=== PATIENT | female | born 1995 | race Caucasian/White ===

== ENCOUNTER → 2021-03-10 15:29 | Outpatient (BNVA) | payer SELFPAY | PROVIDERS: Visit Provider Nurse Practitioner Family | DX: J02.0 Streptococcal pharyngitis (principal) | CPT/HCPCS: 87071; 87880 ==

== ENCOUNTER 2023-09-18 08:07 | Oncology outpatient (recurring) (ONCR) | payer BC, MEDICAID, SELFPAY ==
[2023-09-18 08:30] VITALS: BP 134/84; PULSE 87; RESP 16; TEMP 36.3; O2SAT 99
[2023-09-18 10:03] VITALS: BP 127/83; PULSE 94; RESP 16; TEMP 36.2; O2SAT 99
== END 2023-09-26 23:59 | disposition home or self-care (01) ==
PROVIDERS: PCP Family Medicine; Visit Provider Family Medicine
DX: O36.0990 Maternal care for other rhesus isoimmunization, unspecified trimester, not applicable or unspecified (principal); Z67.41 Type O blood, Rh negative
CPT/HCPCS: 36415; 36430; 86850; 86900; 90384

== ENCOUNTER 2023-11-17 10:17 | Outpatient (CLI) | payer BC, MEDICAID, SELFPAY ==
[2023-11-17 10:20] VITALS: BMI 30.7
[2023-11-17 10:33] VITALS: BP 127/89; PULSE 86; RESP 16
[2023-11-17 10:55] VITALS: BP 116/77; PULSE 88
[2023-11-17 11:15] VITALS: BP 135/83; PULSE 88
== END 2023-11-17 11:25 | disposition home or self-care (01) ==
LOC: OPOB 10:28 → OBGYN 10:29
PROVIDERS: Absent Provider Family Medicine; PCP Family Medicine; Visit Provider Family Medicine
DX: O16.9 Unspecified maternal hypertension, unspecified trimester (principal); O36.5990 Maternal care for other known or suspected poor fetal growth, unspecified trimester, not applicable or unspecified; Z3A.00 Weeks of gestation of pregnancy not specified
CPT/HCPCS: 59025; 99211

== ENCOUNTER 2023-11-24 10:07 | Outpatient (CLI) | payer BC, MEDICAID, SELFPAY ==
[2023-11-24 10:07] VITALS: BMI 34.2
[2023-11-24 10:15] VITALS: TEMP 36.7
== END 2023-11-24 10:40 | disposition home or self-care (01) ==
LOC: OPOB 10:10 → OBGYN 10:11
PROVIDERS: PCP Family Medicine; Visit Provider Family Medicine
DX: O36.5990 Maternal care for other known or suspected poor fetal growth, unspecified trimester, not applicable or unspecified (principal); Z3A.00 Weeks of gestation of pregnancy not specified
CPT/HCPCS: 59025

== ENCOUNTER 2023-12-01 10:22 | Outpatient (CLI) | payer BC, MEDICAID, SELFPAY ==
[2023-12-01 10:43] VITALS: BP 138/74; PULSE 98; RESP 16
[2023-12-01 10:52] VITALS: BMI 34.9
[2023-12-01 10:56] VITALS: BP 132/69; PULSE 86
[2023-12-01 11:11] VITALS: BP 133/70; PULSE 91
[2023-12-01 11:20] VITALS: BP 133/70; PULSE 91
== END 2023-12-01 11:20 | disposition home or self-care (01) ==
LOC: OPOB 10:29 → OBGYN 10:43
PROVIDERS: PCP Family Medicine; Visit Provider Family Medicine
DX: O24.419 Gestational diabetes mellitus in pregnancy, unspecified control (principal); Z3A.00 Weeks of gestation of pregnancy not specified
CPT/HCPCS: 59025; 99211

== ENCOUNTER 2023-12-08 12:02 | Inpatient (IN) | payer BC, MEDICAID, SELFPAY ==
[2023-12-08] VITALS (62 sets, daily range): BP systolic 109–176; BP diastolic 55–115; PULSE 67–126; RESP 16–20; TEMP 35.1–37.3; O2SAT 99–100; BMI 34.5
[2023-12-08 12:05] LABS: Basophils % 0.3 %; Eosinophils # 0.1 10^3/uL (0.0-0.8); Eosinophils % 0.8 %; Hematocrit 33.8 % (36-47); Lymphocytes % 18.8 %; Mean Corpuscular HGB Conc 32.5 g/dL (30-55); Mean Corpuscular Hemoglobin 27.9 pg (27-33); Mean Corpuscular Volume 85.8 fl (85-98); Mean Platelet Volume 11.3 fL (7.4-10.4); Monocytes # 0.6 10^3/uL (0.2-0.9); Monocytes % 5.5 %; Neutrophils # 7.88 10^3/uL (1.8-7.7); Neutrophils % 73.7 %; Nucleated Red Blood Cells % 0 %; Platelet Count 175 10^3/cmm (157-399); Red Blood Count 3.94 10^6/uL (3.85-5.65); Red Cell Distribution Width 13.3 % (12.1-15.1)
[2023-12-08] MEDS: miSOPROStol 100 mcg tablet 25 MCG VAGINAL (12:53)
[2023-12-08] MEDS: fentaNYL 50 mcg/mL INJ 2mL IVP ×2 (15:03→16:06)
[2023-12-08] MEDS: ondansetron 2 mg/ML SDV 2 mL 4 MG IVP (15:10)
[2023-12-08] MEDS: lactated ringers 1,000 ML 999 ML IV ×2 (15:20→16:23)
--- NOTE | 2023-12-08 16:15 | P.ANESASSM_ITS ---
Pre-Anesthetic Assessment Height/Weight: Height 1.52 m Weight 80.286 kg Temp Pulse Resp BP O2 Del Method 98.4 F 100 16 156/93 Room Air 12/08/23 12:10 12/08/23 16:07 12/08/23 16:06 12/08/23 16:07 12/08/23 12:09 Preop Diagnosis: IUP Labor epidural Familial anesthetic complications: None Was Beta Bran taken within 24 hours: N/A Was Clonidine taken within 24 hours: N/A Social No alcohol and No tobacco Exam alert, oriented x 3, clear to auscultation bilaterally and regular rate & rhythm Airway Mallampati: Class III Dentition: full Comments: Comments: poor dentition History/ROS No significant history except as noted Pulmonary Asthma (childhood, does not use inhaler on a regular basis ) CV/HEM Hypertension None reported Hepatic None reported GI Gastroesophageal Reflux Disease Metabolic None reported Musc/skel None reported Neuropsych None reported Anesthetic Plan ASA status: 2 Anesthesia: Anesthesia Evaluation and Regional (specify below) (epidural) Risk of > 500 ml blood loss (7ml/kg in children): Yes, adequate IV access and fluids planned Medications/Allergies Home Medications Medication Instructions Recorded Confirmed Last Taken Type famotidine 20 mg tablet (Pepcid) 20 mg PO BID PRN Acid Reflux 12/01/23 12/01/23 11/30/23 23:00 History ondansetron HCl 4 mg tablet 4 mg PO Q6H PRN Nausea 12/01/23 12/01/23 12/01/23 08:30 History vits no.124-ferrous fum 1 tab PO DAILY 12/01/23 12/01/23 11/30/23 23:00 History 27 mg iron-folic acid 800 mcg tablet ( Vitamin) Allergies Allergy/AdvReac Type Severity Reaction Status Date / Time No Known Allergies Allergy Verified 12/08/23 10:37 Current Medications Generic Name Dose Route Start Last Admin Trade Name Freq PRN Reason Stop Dose Admin Fentanyl 25 - 100 mcg 12/08/23 11:21 12/08/23 16:06 Fentanyl 50 Mcg/Ml Inj 2ml IVP 50 mcg Q1H PRN Administration SEVERE PAIN Lactated Ringer's 1,000 mls @ 999 mls/hr 12/08/23 15:26 12/08/23 15:20 Lactated Ringers IV 999 mls/hr .Q1H1M PRN Administration See label comments Ondansetron HCl 4 mg 12/08/23 11:21 12/08/23 15:10 Ondansetron 2 Mg/Ml Sdv 2 Ml IVP 4 mg Q4H PRN Administration NAUSEA AND VOMITING PFSH Anesthesia Social History Smoking and tobacco/nicotine status: current every day tobacco/nicotine user cigarettes Quit status (tobacco/nicotine): not considering quitting Second hand smoke exposure: Yes Alcohol intake: never Substance/Drug Use: never Female Reproductive History : 1 Data Anesthesia 12/08/23 11:50 Short CBC 12/08/23 Range/Units 11:50 WBC 10.70 (3.29-11.43) 10^3/uL Hgb 11.00 L (11.27-16.99) g/dL Hct 33.8 L (36-47) % MCV 85.8 (85-98) fl Plt Count 175 (157-399) 10^3/cmm Neut % (Auto) 73.7 % Neut # (Auto) 7.88 H (1.8-7.7) 10^3/uL Blood Bank 12/08/23 11:50 Blood Type O Negative Rho(D) Type Negative Antibody Screen Negative Cardiac Studies: 2 No Data to Display Anesthesia Procedures Epidural Time Out Performed: Yes Consents Signed: Procedure Consent Consent: requested by attending/covering physician, from patient, risks and benefits reviewed and patient agrees to proceed Lumbar Level: L4-L5 Epidural position: sitting Epidural procedure: sterile prep of area, 1% lidocaine to numb the area, 18 g needle, negative for paresthesia passed, neg for paresthesia, test dose given, 1.5% xylocaine 1:200k epi, 0.2% Ropivacaine bolus ml (5), placed PCEA, no systemic response, sterile dressing applied, L.U.D. no apparent complications and 0.2% Ropiavacaine @ mls/hr (10) Additional Comments: MEIR 5cm, catheter easily threaded to 5cm in the space, pt reports minimal discomfort with contractions. Pt educated on [employer] and all questions answered.
[2023-12-08] MEDS: ROPivacaine syringe 100 MG/50 ML SYRINGE 10 MG EPIDURAL ×2 (16:39→21:08)
[2023-12-08] MEDS: alum-mag-hydroxide-sime 30 mL UDC PO ×2 (17:24→21:47)
[2023-12-08] MEDS: lanolin oint 7 gm 1 APPLIC TOPICAL (20:58)
[2023-12-08] MEDS: dextrose 5%-lactated ringers 1,000 ML 125 ML IV (21:47)
[2023-12-08] MEDS: oxytocin 30 UNIT/500 ML BAG IV (21:50)
[2023-12-09] VITALS (53 sets, daily range): BP systolic 121–189; BP diastolic 65–102; PULSE 70–129; RESP 18; TEMP 36.5–37.8
[2023-12-09] MEDS: ampicillin 2,000 MG in sodium chloride 0.9% (plus) 50 ML 100 MG IV (01:15)
[2023-12-09] MEDS: alum-mag-hydroxide-sime 30 mL UDC PO ×3 (01:39→09:43)
[2023-12-09] MEDS: ROPivacaine syringe 100 MG/50 ML SYRINGE 10 MG EPIDURAL ×3 (02:09→10:03)
--- NOTE | 2023-12-09 03:08 | ANES.PROC ---
Anesthesia Procedures Procedure/Date: 12/09/23 epidural bolus Procedure Narrative: Called by RN to dose epidural for pain associated with contractions; Pt complaining of some mild discomfort in abdomen with contractions and pain 10/10 in rectum and vagina. 100mcg of Fentanyl and 3 ml of 0.25% bupivacaine given via epidural.
[2023-12-09] MEDS: ampicillin 1,000 MG in sodium chloride 0.9% (plus) 50 ML 100 MG IV ×2 (05:02→09:37)
[2023-12-09] MEDS: dextrose 5%-lactated ringers 1,000 ML 125 ML IV (06:17)
[2023-12-09] MEDS: ondansetron 2 mg/ML SDV 2 mL 4 MG IVP (10:03)
[2023-12-09] MEDS: miSOPROStol 200 mcg Tablet 800 MCG PR (12:48)
--- NOTE | 2023-12-09 13:05 | PM.OPHPUD ---
Labor & Delivery H&P Update Date of Procedure: December 09, 2023 Date H&P Performed: 12/05/23 Admission Diagnosis: at 39 weeks 6 days gestation Chronic hypertension worsening Preop diagnosis: IUP Planned procedure: Induction of labor and delivery
--- NOTE | 2023-12-09 13:06 | PM.DELIVERY ---
Delivery Note: Date of delivery: December 09, 2023 Pre-Delivery Course: The patient had routine care at [facility]. Her blood type was O- antibody negative, hepatitis B nonreactive, hepatitis C nonreactive, HIV nonreactive, rubella immune, GC chlamydia and negative, RPR nonreactive, Q [place] low risk, she failed her 1 hour test but passed her 3-hour test, she was GBS negative, she was high risk due to chronic hypertension. The patient had mildly elevated blood pressures at the very beginning of her . This she was diagnosed with untreated chronic hypertension. She did not require any antihypertensive medications during the as she would just periodically have something in the 140s over 90s. She was started on twice weekly NSTs around 35 weeks gestation. Delivery: This is a 28-year-old G1, P0 who presented at 39 weeks 6 days gestation for routine NST. Her NST was reactive but her blood pressures were elevated in the 140s. She was known to have chronic hypertension that was not requiring medication but typically she did not have multiple elevated pressures in a row. Since she was already full-term decision was made to proceed with induction. She was given Cytotec x 1 which put her into labor. She received an epidural for pain management. When she was 9 cm dilated she underwent artificial rupture of membranes with thick meconium. She had to push for about 35 minutes and had a normal spontaneous vaginal delivery of a viable male infant weight 2760 g, 6 pounds 1 ounce, Apgars 8 and 9 over an intact perineum. The was suctioned at delivery and placed on the mother's chest. The cord was clamped and cut. The placenta was delivered grossly intact and normal to inspection. There was a large gush of blood following the placenta. The patient was bleeding briskly so she was given 800 mcg of Cytotec in addition to her Pitocin. She responded nicely. She had a second-degree slightly to the right vaginal laceration that was sutured using 3-0 chromic. Mother and infant were doing well after delivery. Coding Level of Care Code Acute Code for Chg Fwblossom
[2023-12-09] MEDS: labetalol 5 mg/mL SDV 20mL 20 MG IVP (14:49)
--- NOTE | 2023-12-09 15:39 | ANE.PACU2 ---
Inpatient post-anesthesia follow up: Airway intact: Yes Vital signs: Temperature 97.9 F Pulse Rate 96 Respiratory Rate 18 Blood Pressure 149/82 Pulse Oximetry 100 Oxygen Delivery Me thod Room Air Oxygen Flow Rate Fraction of Inspir ed Oxygen Hydration adequate: Yes Nausea and vomiting: No Pain level: 2 Mental status: Baseline Epidural Start/End: Epidural Start Date: 12/08/23 Epidural Start Time: 16:38 Epidural End Date: 12/09/23 Epidural End Time: 13:06
[2023-12-09] MEDS: benzocaine-menthol 78 gm Canister 1 SPRAY TOPICAL (16:32)
--- NOTE | 2023-12-09 16:50 | PC.NURSE ---
Patient reported feeling like she was involuntarily having a BM, no stool was noted on the chux pad, but one partially dissolved cytotec tablet was seen on the chux. When pt was up to bathroom to attempt to void, she stated she felt more coming out. 2 partially dissolved tablets were noted with a small amount of stool in the toilet. Pt was unable to void at this time.
[2023-12-09] MEDS: ibuprofen 800 mg tablet PO (21:01)
[2023-12-09] MEDS: docusate sodium 100 mg Capsule PO (21:01)
[2023-12-09] MEDS: HYDROcodone-acetaminophen 5-325 mg Tablet PO (23:34)
[2023-12-10] VITALS (7 sets, daily range): BP systolic 110–147; BP diastolic 74–97; PULSE 71–98; RESP 16–17; TEMP 36.4–36.7; O2SAT 96–98
[2023-12-10 02:55] LABS: Mean Corpuscular HGB Conc 32.7 g/dL (30-55); Mean Corpuscular Hemoglobin 27.9 pg (27-33); Mean Corpuscular Volume 85.2 fl (85-98); Mean Platelet Volume 11.4 fL (7.4-10.4); Platelet Count 147 10^3/cmm (157-399); Red Blood Count 3.05 10^6/uL (3.85-5.65); Red Cell Distribution Width 13.5 % (12.1-15.1); White Blood Count 17.88 10^3/uL (3.29-11.43)
[2023-12-10] MEDS: alum-mag-hydroxide-sime 30 mL UDC PO ×2 (03:23→14:46)
[2023-12-10] MEDS: docusate sodium 100 mg Capsule PO (09:40)
[2023-12-10] MEDS: prenatal vitamin Capsule 1 CAP PO (09:40)
[2023-12-10] MEDS: ibuprofen 800 mg tablet PO ×3 (09:41→22:03)
--- NOTE | 2023-12-10 17:40 | P.PN_ITS ---
Subjective 2 Subjective: The patient is ambulating and tolerating a regular diet. She states that her bleeding is not as heavy as she had expected. She does not have any complaints. Vitals/I&O/Wt Last Vital Signs Temp 97.8 F 12/10/23 16:50 Pulse 89 12/10/23 16:50 Resp 17 12/10/23 16:50 BP 147/97 12/10/23 16:50 Pulse Ox 98 12/10/23 16:50 O2 Del Method Room Air 12/10/23 16:50 12/10/23 12/10/23 12/10/23 06:59 14:59 22:59 Output Total 200 / 400 Balance -200 / 725 Physical Exam 2 Narrative: Alert and oriented, sitting up in bed holding infant, heart regular rate and rhythm, lungs clear to auscultation bilaterally, abdomen is soft and nontender, fundus is firm and U -2, extremities have no calf tenderness but do have trace edema. Urinary Catheter Management: Howard Latex Free: Cath Placed During This Visit: yes, but has since been removed by the nurse Reason for Continuing Indwelling Catheter: Required Immobilization for Trauma or Surgery or Anesthesia Urinary Catheter Date of Insertion: 12/08/23 Urinary Catheter Time of Insertion: 17:20 Date Urinary Catheter Removed: 12/09/23 Time Urinary Catheter Discontinued: 12:10 Data 12/10/23 01:40 A&P Assessment and plan (1) Hypertension: She required 1 dose of antihypertensive after delivery as her blood pressures did remain severely elevated. Since then her blood pressures have only been mildly elevated and we will continue to watch without antihypertensive. Qualifiers: Hypertension type: primary hypertension Qualified Code(s): I10 - Essential (primary) hypertension (2) (normal spontaneous vaginal delivery): day #1 doing well continue to work with nursing on breast-feeding Attestations 2 Medical Necessity Statement*: Routine care Coding Level of Care Code Acute Code for Chg Fwd Diagnoses Primary hypertension I10 Hypertension type: primary hypertension (normal spontaneous vaginal delivery) O80
[2023-12-11 04:10] VITALS: BP 155/93; PULSE 86; RESP 16; TEMP 36.6; O2SAT 98
--- NOTE | 2023-12-11 08:33 | P.DS_ITS ---
Discharge Providers Date of Admission: 12/08/23 12:02 Date of Discharge: December 11, 2023 Attending Provider at Admission: Gabby Lundy MD Attending Provider at Discharge: Gabby Lundy MD Primary Care Provider: Gabby Lundy MD Diagnoses at Discharge Discharge Diagnosis (1) Hypertension: Status: Acute Qualifiers: Hypertension type: primary hypertension Qualified Code(s): I10 - Essential (primary) hypertension (2) (normal spontaneous vaginal delivery): Status: Acute Reason for Visit Reason for Visit: NST Hospital Course Hospital Course This is a 28-year-old G1 now P1 who was admitted for induction secondary to chronic hypertension. She did not require medications during the as her blood pressures were only mildly elevated. After delivery she had a couple severely elevated blood pressures and received 1 dose of IV antihypertensive. She has not required any additional doses. Her blood pressures at most have been 155/93. She is feeling well and has decreased vaginal bleeding. She is comfortable with discharge home Physical Exam Narrative: Alert and oriented, sitting up in bed, heart regular rate and rhythm, lungs clear to auscultation bilaterally, abdomen is soft and nontender, fundus is firm, extremities have 2+ edema but no calf tenderness. Urinary Catheter Management: Howard Latex Free: Cath Placed During This Visit: yes, but has since been removed by the nurse Reason for Continuing Indwelling Catheter: Required Immobilization for Trauma or Surgery or Anesthesia Urinary Catheter Date of Insertion: 12/08/23 Urinary Catheter Time of Insertion: 17:20 Date Urinary Catheter Removed: 12/09/23 Time Urinary Catheter Discontinued: 12:10 Discharge Data Studies Completed and Pending Laboratory Results WBC 17.88 10^3/uL (3.29-11.43) H 12/10/23 01:40 RBC 3.05 10^6/uL (3.85-5.65) L 12/10/23 01:40 Hgb 8.50 g/dL (11.27-16.99) L 12/10/23 01:40 Hct 26.0 % (36-47) L 12/10/23 01:40 MCV 85.2 fl (85-98) 12/10/23 01:40 MCH 27.9 pg (27-33) 12/10/23 01:40 MCHC 32.7 g/dL (30-55) 12/10/23 01:40 RDW 13.5 % (12.1-15.1) 12/10/23 01:40 Plt Count 147 10^3/cmm (157-399) L 12/10/23 01:40 MPV 11.4 fL (7.4-10.4) H 12/10/23 01:40 Neut % (Auto) 73.7 % 12/08/23 11:50 Lymph % (Auto) 18.8 % 12/08/23 11:50 [place] % (Auto) 5.5 % 12/08/23 11:50 Eos % (Auto) 0.8 % 12/08/23 11:50 Baso % (Auto) 0.3 % 12/08/23 11:50 Neut # (Auto) 7.88 10^3/uL (1.8-7.7) H 12/08/23 11:50 Lymph # (Auto) 2.0 10^3/uL (0.8-4.8) 12/08/23 11:50 [place] # (Auto) 0.6 10^3/uL (0.2-0.9) 12/08/23 11:50 Eos # (Auto) 0.1 10^3/uL (0.0-0.8) 12/08/23 11:50 Baso # (Auto) 0.0 10^3/uL (0.0-0.1) 12/08/23 11:50 Nucleated RBC % (auto) 0 % 12/08/23 11:50 Nucleated RBCs # 0.0 /100WBC 12/08/23 11:50 Blood Type O Negative 12/08/23 11:50 Rho(D) Type Negative 12/08/23 11:50 Antibody Screen Negative 12/08/23 11:50 Screen Negative (Negative) 12/10/23 01:40 Vitals Last Vital Signs Temp 97.9 F 12/11/23 04:10 Pulse 86 12/11/23 04:10 Resp 16 12/11/23 04:10 BP 155/93 12/11/23 04:10 Pulse Ox 98 12/11/23 04:10 O2 Del Method Room Air 12/11/23 04:10 Discharge Plan Discharge Patient Disposition: Home Condition: Stable Prescriptions: Continued ondansetron HCl 4 mg Tablet 4 mg PO Q6H PRN (Reason: Nausea) famotidine [Pepcid] 20 mg Tablet 20 mg PO BID PRN (Reason: Acid Reflux) Vitamin 27 mg iron- 800 mcg Tablet 1 tab PO DAILY Discharge Orders: Discharge Order (Routine); Ordered 12/11/23 Ordered By: Gabby Lundy Referrals: Gabby Lundy MD [Primary Care Provider] - 1 week Discharge Diet: Usual diet Discharge Activity: Limit activity as instructed Patient Instructions: Opioid Safety Discharge Attestations Time Spent in Discharge Care*: less than 30 min Quality Metrics Clinical Quality Measures [ No reported AMI, CVA or VTE this stay] Coding Level of Care Code Acute Code for Chg Fwd Diagnoses Primary hypertension I10 Hypertension type: primary hypertension (normal spontaneous vaginal delivery) O80
[2023-12-11] MEDS: ibuprofen 800 mg tablet PO (09:12)
[2023-12-11] MEDS: docusate sodium 100 mg Capsule PO (09:12)
[2023-12-11] MEDS: prenatal vitamin Capsule 1 CAP PO (09:12)
[2023-12-11 09:13] VITALS: BP 136/89; PULSE 89; RESP 17; TEMP 36.7; O2SAT 99
[2023-12-11 11:03] VITALS: BP 148/97; PULSE 87; RESP 17; TEMP 36.7; O2SAT 98
[2023-12-11 11:48] VITALS: BP 148/97; PULSE 87; RESP 17; TEMP 36.7; O2SAT 98
== END 2023-12-11 11:48 | disposition home or self-care (01) | DRG 807 ==
LOC: OPOB 12:02 → OBGYN 12:02
PROVIDERS: Admitting Provider Family Medicine; PCP Family Medicine; Visit Provider Family Medicine
DX: O10.02 Pre-existing essential hypertension complicating childbirth (principal); Z37.0 Single live birth; Z3A.39 39 weeks gestation of pregnancy; O70.1 Second degree perineal laceration during delivery; O77.0 Labor and delivery complicated by meconium in amniotic fluid; O99.334 Smoking (tobacco) complicating childbirth; F17.210 Nicotine dependence, cigarettes, uncomplicated; K21.9 Gastro-esophageal reflux disease without esophagitis; O99.62 Diseases of the digestive system complicating childbirth
CPT/HCPCS: 36415; 36416; 36430; 51702; 59025; 59409; 85025; 85027; 85460; 86850; 86900; 90384; 96374; 96376; J0290; J2405; J2590; J2795; J3010; J3490; J7120; J7121